=== PATIENT | female | born 1970 | race Two or more races ===

== ENCOUNTER 2025-01-23 13:10 | Emergency (ER) | payer OTHER ==
[~2025-01-23] VITALS: Ht 160 cm; Wt 83.9 kg
[~2025-01-23 13:10] MED LIST: MIDOL PO
[2025-01-23] MEDS ORDERED: HYZAAR 100-251 EACH PO (14:12)
[2025-01-23] MEDS ORDERED: cloNIDine HCL 0.2 MG TABLET PO ONE (14:15)
[2025-01-23 14:28] LABS: HEMOGLOBIN 14.4 g/dL (12.0-15.00); MEAN CELL VOLUME 76.9 fL (80.00-100.00); MEAN CORPUSCULAR HEMOGLOBIN 25.8 pg (27.00-32.0); MEAN CORPUSCULAR HGB CONC 33.6 g/dl (32.0-36.0); PLATELET COUNT 208 K/uL (150-450); RED BLOOD COUNT 5.59 M/uL (4.00-6.00); RED CELL DISTRIBUTION WIDTH 15.6 % (11.5-14.5)
== END 2025-01-23 15:55 | disposition home or self-care (01) ==
LOC: ER 13:13
PROVIDERS: Emergency Medicine
DX: I10 Essential (primary) hypertension (principal); H92.02 Otalgia, left ear